=== PATIENT | male | born 1945 | race Caucasian/White ===

== ENCOUNTER 2018-01-09 07:30 | Inpatient (IN) | payer MEDICARE, BC ==
[2018-01-15] MEDS ORDERED: Buffered Lidocaine 0.9% SYRIN* 5 ML/SYR SYRINGE INTRADERM ONE (10:46)
[2018-01-16] MEDS ORDERED: Dexamethasone IV* 4 MG/ML 1 ML (4 MG) ONE (05:52)
[2018-01-16] MEDS ORDERED: Famotidine IV* 10 MG/ML 2 ML (20 mg) ONE (05:52)
[2018-01-16] MEDS ORDERED: ceFAZolin 2 GM PREMIX (*) 2 GM/50 ML BAG IVPB ONE (05:53)
[2018-01-16] MEDS ORDERED: Famotidine IV* 10 MG/ML 2 ML (20 mg) IV ONE (06:00)
[2018-01-16] MEDS ORDERED: Dexamethasone IV* 4 MG/ML 1 ML (4 MG) IV SLOW PU ONE (06:00)
[2018-01-16] MEDS ORDERED: fentaNYL* 50 MCG/ML 2 ML VIAL (100 MCG VIAL) ONE (07:04)
[2018-01-16] MEDS ORDERED: Gabapentin CAP(*) 300 MG PO ONE (07:05)
[2018-01-16] MEDS ORDERED: celeCOXIB CAP* 200 MG PO ONE (07:05)
[2018-01-16] MEDS ORDERED: Midazolam* 1 MG/ML 10 ML VIAL (10 MG) ONE (07:05)
[2018-01-16] MEDS ORDERED: Acetaminophen IV 1GM/100ML * 1,000 MG/100 ML VIAL IVPB ONE (07:06)
[2018-01-16] MEDS ORDERED: celeCOXIB CAP* 100 MG ONE (07:17)
[2018-01-16] MEDS ORDERED: Gabapentin CAP(*) 300 MG ONE (07:17)
[2018-01-16] MEDS ORDERED: Acetaminophen IV 1GM/100ML * 100 ML ONE (07:18)
[2018-01-16] MEDS ORDERED: Ropivacaine (OR use only) 2 MG/ML 10 ML ONE (07:23)
[2018-01-16] MEDS ORDERED: Ondansetron INJ* 2 MG/ML VIAL ONE (08:07)
[2018-01-16] MEDS ORDERED: Bupivacaine 0.5% SDV PF* 30ML VIAL ONE (08:08)
[2018-01-16] MEDS ORDERED: Lidocaine 2% PF * 5 ML VIAL ONE (08:08)
[2018-01-16] MEDS ORDERED: Ondansetron INJ* 2 MG/ML VIAL IV PRN ×2 (09:04→10:20)
[2018-01-16] MEDS ORDERED: HYDROmorphone INJ* 1 MG/ML CARPUJECT SYRINGE IV PRN (09:04)
[2018-01-16] MEDS ORDERED: fentaNYL* 50 MCG/ML 2 ML VIAL (100 MCG VIAL) IV PRN (09:04)
[2018-01-16] MEDS ORDERED: DiMENhydriNATE IV* 50 MG/ML VIAL IV PUSH PRN (09:04)
[2018-01-16] MEDS ORDERED: Naloxone* 0.4 MG/ML 1 ML VIAL IV PRN (09:04)
[2018-01-16] MEDS ORDERED: Propofol* 10 MG/ML 20 ML BTL IV PUSH ONE (10:02)
[2018-01-16] MEDS ORDERED: oxyCODONE TAB* 5 MG TAB PO PRN (10:20)
[2018-01-16] MEDS ORDERED: Morphine INJ* 2 MG/ML 1 ML CARPUJECT IV PRN (10:20)
[2018-01-16] MEDS ORDERED: oxyCODONE/Acetamin 5/325 MG* TAB PO PRN ×2 (10:20)
[2018-01-16] MEDS ORDERED: Polyethylene Glycol 3350* 17 GM PACKET PO PRN (10:20)
[2018-01-16] MEDS ORDERED: diPHENhydraMINE IV* 50 MG/ML 1 ml VIAL (BENADRYL) IV PRN (10:20)
[2018-01-16] MEDS ORDERED: diPHENhydraMINE PO* 25 MG PO PRN (10:20)
[2018-01-16] MEDS ORDERED: Cyclobenzaprine TAB* 10 MG PO PRN (10:20)
[2018-01-16] MEDS ORDERED: Bisacodyl SUPP* 10 MG SUPP PR PRN (10:20)
[2018-01-16] MEDS ORDERED: Ondansetron TAB* 4 MG PO PRN (10:20)
[2018-01-16] MEDS ORDERED: Temazepam CAP* 15 MG PO PRN (10:20)
--- NOTE | 2018-01-16 11:38 | RAD ---
HISTORY: Postop hip arthroplasty COMPARISONS: January 10, 2018 VIEWS: 1, single portable view of the lower pelvis FINDINGS: BONE DENSITY: Normal. BONES: The patient is status post right hip arthroplasty. On the single frontal projection, there is no appreciable hardware failure or osteolysis. JOINTS: The patient is status post right hip arthroplasty. There is moderate osteoarthritis of the left hip. ALIGNMENT: There is no dislocation. SOFT TISSUES: Unremarkable. OTHER FINDINGS: None. IMPRESSION: STATUS POST RIGHT HIP ARTHROPLASTY.
[2018-01-16] MEDS: ceFAZolin 1 GM in Dextrose (*) 1 GM/50 ML BAG IVPB SCH (16:11)
[2018-01-16] MEDS: Finasteride TAB* 5 MG PO SCH (17:53)
[2018-01-16] MEDS: Folic Acid TAB* 1 MG PO SCH (17:53)
[2018-01-16] MEDS: Ferrous Sulfate TAB* 325 MG PO SCH (21:08)
[2018-01-16] MEDS: Docusate CAP* 100 MG PO SCH (21:08)
[2018-01-16] MEDS: guaiFENesin ER TAB 600 MG PO SCH (21:08)
[2018-01-16] MEDS: Niacin ER TAB* 500 MG PO SCH (21:08)
[2018-01-17] MEDS: ceFAZolin 1 GM in Dextrose (*) 1 GM/50 ML BAG IVPB SCH ×2 (00:07→08:02)
--- NOTE | 2018-01-17 01:48 | OP ---
CC: Dr. Patrice Moss, [facility] * DATE OF OPERATION: 01/16/18 - ROOM #349 DATE OF : 41 SURGICAL CARE: Right hip. SURGEON: Heath Arrieta MD ASSISTANTS: 1. LANIE Claudio. She was the administrative assistant receptionist. 2. Zenobia Pina, surgical consultant. ANESTHESIOLOGIST: Dr. Ramses Delatorre. ANESTHESIA: Right iliac block in the holding area. Spinal anesthetic. IV sedation. PRE-OP DIAGNOSIS: Severe arthritis of the right hip. POST-OP DIAGNOSIS: Severe arthritis of the right hip. OPERATIVE PROCEDURE: Right total hip replacement. COMPONENTS UTILIZED: Stephany components were utilized, a continuum cup 52-mm outer diameter with one screw. An elevated liner high-density polyethylene with the elevation located posteriorly, and the liner was for a 36 head, one screw in the cup. On the femoral side, a standard M/L taper size 10 with a - 3.5 36-mm cobalt chrome head. COMPLICATIONS: There were no complications. DRAINS: There were no drains. BLOOD LOSS: 250 mL. REPLACEMENT: Crystalloid fluids. OPERATIVE INDICATIONS: Severe arthritis of the right hip. He has had this for several years. He has had cortisone injections. The hip is no longer responding to nonoperative care and a right total hip replacement was recommended. DESCRIPTION OF PROCEDURE: The patient was brought to the operating room and placed on the operating room table in a supine position. Following the administration of the spinal anesthetic done in the sitting position, the patient returned to the supine position and a Mejia catheter was inserted. The patient was placed in the left lateral position with a folded blanket under the left greater trochanter. The downside left leg had no pressure on the peroneal nerve at the fibular head and neck. Blankets were placed between the legs. The groin was sealed off and the pelvis was secured over the ASIS and the sacrum with a hip positioner. The right hip was given a preliminary chlorhexidine prep and then a formal ChloraPrep prep from the hip to the foot. After prepping, draping, and sealing off, we did our universal protocol time- out confirming Duc Flaccus and a plan for a right total hip replacement. We all agreed and we proceeded. The skin incision went from the greater trochanter distally for an inch and proximally and posteriorly for 2.5 inches. The skin and subcutaneous tissues were divided. The local anesthetic 0.25% Marcaine without epinephrine was used to bolster the anesthetic on the posterior and superior part to the incision. Careful hemostasis was checked and achieved throughout the case utilizing electrocautery. The fascia larry was opened in line with the skin incision. The Charnley retractor was inserted. Trochanteric bursectomy was completed. The posterior gluteus medius was retracted anteriorly with a blunt Hohmann retractor exposing the piriformis and the conjoint tendon. The piriformis and conjoint tendon were released from the piriformis fossa insertions. Each was marked with #2 Surgidac and the stitch also marked the under-lying both more posterior capsule. The hip had abundant gold clear synovial fluid. The gluteus medius was also retracted anteriorly. The superior capsule was opened partially and the hip was dislocated without any difficulty. The femoral head was completely eburnated on top and little flattened. On the acetabular side, there was a large medial osteophyte that completely sealed off the acetabular fossa. The femoral neck was cut proximally a fingerbreadth proximal to the lesser trochanter after checking with a neck cutting guide for the M/L taper. The remainder of the acetabular labrum was removed posteriorly, superiorly, and anteriorly. There was a lot of synovitis of the hip. Sharp retractors Hohmann type anteriorly and posteriorly, blunt retractor superiorly and inferiorly. The posterior inferior osteophyte was removed. The medial osteophyte was removed with osteotomes and the Charnley curette. Once the fossa was nicely visible, then reaming was done 46 through 52 and at 52, we had nice bleeding subchondral and cancellous bone. The acetabulum was cleaned with saline pulsed irrigation type, dried, and then the 52 cup was impacted into position in 45 degrees of abduction, 20 degrees of anteversion and we checked to see it had bottomed out. A screw was placed superiorly and an elevated liner was then placed posteriorly. Careful hemostasis was checked and achieved. The acetabulum was packed and on the femoral side, we used a canal finder, trochanteric reamer, and box osteotome broaching was done 5, 6, 7 through 10 and at 10, we had a nice tight fit. A trial reduction was done with a +0 on a standard neck stem and this I felt was a little too tight. The size 10 M/L tapered standard stem was impacted into position in 15 to 20 degrees of anteversion. A trial reduction was done with a +0 and this still felt too tight, so I utilized a -3.5 36 mm head. The trunnion was cleaned and the final head was applied. The hip was reduced without difficulty. Negative push/pull in extension. The hip went into extension by a few degrees with good soft tissue feel. Flexion of 90 degrees allowed adduction and internal rotation approaching 30 to 40 degrees prior to dislocation. The piriformis and conjoint tendon were reapproximated to the posterior superior greater trochanter through 2 drill holes. We checked and achieved hemostasis on the way out prior to reattaching the muscles and irrigated on the way out including swabbing the soft tissues with clean lap sponges. The fascial larry closed with interrupted #1 Polysorb in a [id number] fashion. Deep and superficial subcu was closed with 0 and then 2-0 Polysorb and then alyssa on the skin. A little more local anesthetic 10 mL was infiltrated into the more superior part to the incision and the incision was then closed with alyssa, washed and dried and covered with Betadine-soaked release, sterile gauze, ABD pad, and then paper tape. The patient was returned to the recovery room in stable and satisfactory condition, having tolerated the procedure very well. [id number]/CPS #: [id number] AMANDA
[2018-01-17 05:47] LABS: Hematocrit 34 % (42-52); Mean Platelet Volume 7.1 um3 (7.4-10.4); Platelet Count 174 10^3/ul (150-450)
[2018-01-17 06:03] LABS: EGFR Non-African American 91.8 (>60)
[2018-01-17] MEDS ORDERED: Magnesium Hydroxide LIQ* 30 ML UDC PO PRN (08:00)
--- NOTE | 2018-01-17 08:09 | PN ---
Progress Note - Progress Note Date of Service: 01/17/18 SOAP: Subjective: Minimal hip region pain left. [] 98.9 F, In 4500 ml, Out 4450 ml. Hct 34%, Sorry the previous is objective. Objective: Awake, alert, cooperative and breathing easily. Post op X-ray right hip all satisfactory. []Right Post Tibial pulse is 2 plus. Active right ankle movements up and down. Extends right knee easily. Assessment: Doing well right total hip replacement. Acute blood loss anemia. [] Plan: Up with walker weight bearing as tolerated right. []
[2018-01-17] MEDS: Vitamin THERAPEUTIC TAB PO SCH (09:23)
[2018-01-17] MEDS: Aspirin TAB* 325 MG PO SCH (09:23)
[2018-01-17] MEDS: guaiFENesin ER TAB 600 MG PO SCH ×2 (09:23→19:50)
[2018-01-17] MEDS: Docusate CAP* 100 MG PO SCH ×2 (09:23→19:49)
[2018-01-17] MEDS: Niacin ER TAB* 500 MG PO SCH ×2 (09:23→19:50)
[2018-01-17] MEDS: Ferrous Sulfate TAB* 325 MG PO SCH ×2 (09:23→19:49)
[2018-01-17] MEDS ORDERED: Enoxaparin(*) 40 MG/0.4 ML SYR SUBCUT SCH (12:00)
[2018-01-17] MEDS: Acetaminophen TAB* 325 MG PO PRN ×2 (12:55→19:50)
[2018-01-17] MEDS: Finasteride TAB* 5 MG PO SCH (17:41)
[2018-01-17] MEDS: Folic Acid TAB* 1 MG PO SCH (17:41)
[2018-01-18 06:17] LABS: Hematocrit 36 % (42-52); Mean Platelet Volume 7.4 um3 (7.4-10.4); Platelet Count 169 10^3/ul (150-450)
[2018-01-18] MEDS: Ferrous Sulfate TAB* 325 MG PO SCH (08:11)
[2018-01-18] MEDS: Acetaminophen TAB* 325 MG PO PRN ×2 (08:11→13:36)
[2018-01-18] MEDS: Aspirin TAB* 325 MG PO SCH (08:11)
[2018-01-18] MEDS: guaiFENesin ER TAB 600 MG PO SCH (08:12)
[2018-01-18] MEDS: Vitamin THERAPEUTIC TAB PO SCH (08:12)
[2018-01-18] MEDS: Docusate CAP* 100 MG PO SCH (08:12)
[2018-01-18] MEDS: Niacin ER TAB* 500 MG PO SCH (08:12)
--- NOTE | 2018-01-18 11:29 | PN ---
Progress Note - Progress Note Date of Service: 01/18/18 SOAP: Subjective: []Patient seen at bedside with his family present. He feels well, has no hip pain. Denies CP, SOB, dizziness, leg numbness, fever, nausea or chills. Objective: [] Vital Signs Temp 98.1 F 01/18/18 07:42 Pulse 69 01/18/18 07:42 Resp 18 01/18/18 08:00 BP 148/81 01/18/18 07:42 Pulse Ox 95 01/18/18 08:00 Intake & Output 01/17/18 01/18/18 01/18/18 18:59 06:59 18:59 Intake Total 3422 1010 870 Output Total 1999 1350 1000 Balance 1422 -340 -130 Intake: IV Fluids 987 LR 987 IVPB 115 LR 115 Oral 2320 1010 870 Output: Urine 1999 1350 1000 Other: Estimated Void Medium Medium # Bowel Movements 1 1 Estimated Stool Amount Large Large # Voids 5 1 Laboratory Last Values Hgb 12.0 g/dl (14.0-18.0) L 01/18/18 05:41 Hct 36 % (42-52) L 01/18/18 05:41 Plt Count 169 10^3/ul (150-450) 01/18/18 05:41 MPV 7.4 um3 (7.4-10.4) 01/18/18 05:41 Sodium 139 mmol/L (139-145) 01/17/18 05:27 Potassium 4.0 mmol/L (3.5-5.0) 01/17/18 05:27 Chloride 106 mmol/L (101-111) 01/17/18 05:27 Carbon Dioxide 27 mmol/L (22-32) 01/17/18 05:27 Anion Gap 6 mmol/L (2-11) 01/17/18 05:27 BUN 16 mg/dL (6-24) 01/17/18 05:27 Creatinine 0.82 mg/dL (0.67-1.17) 01/17/18 05:27 Est GFR ( Amer) 118.1 (>60) 01/17/18 05:27 Est GFR (Non-Af Amer) 91.8 (>60) 01/17/18 05:27 BUN/Creatinine Ratio 19.5 (8-20) 01/17/18 05:27 Glucose 115 mg/dL (70-100) H 01/17/18 05:27 Calcium 8.9 mg/dL (8.6-10.3) 01/17/18 05:27 General: Well appearing, NAD RLE: Right hip dressing changed. Incision with well approximated edges, no erythema and no discharge. DF/PF intact. DP/PT2+. Sensation intact to light touch distally. BL LE: Calves supple and nontender without erythema, edema or palpable cords. Assessment: []POD 2 sp right total hip arthroplasty Plan: []WBAT PT/OT Hip precautions ASA only for DVT/PE prophylaxis Discharge home today. Patient and family aware and agreeable
[2018-01-18 11:56] VITALS: BP 139/74
--- NOTE | 2018-01-19 14:28 | DS ---
DISCHARGE SUMMARY: DATE OF ADMISSION: 01/16/18 DATE OF DISCHARGE: 01/18/18 SURGEON: Heath Arrieta MD * (DICTATED BY LANIE DIEZ) ASSISTANTS: LANIE Claudio and Zenobia Pina. PRE-OP DIAGNOSIS: Severe arthritis of the right hip. OPERATIVE PROCEDURE: Right total hip replacement. HISTORY: Severe arthritis of the right hip for several years, failure of conservative treatment with cortisone injections, elected to undergo right total hip arthroplasty. HOSPITAL COURSE: The patient was admitted to [facility] on . He underwent a right total hip arthroplasty on this date without complication. He recovered briefly in the PACU and then was transferred to the short stay surgical unit in stable condition. Postop day#1, vitals: Temperature 98.9, pulse 78, respiratory rate 16, oxygen saturation 26, blood pressure 144/79. The patient is awake, alert, cooperative, breathing easily. Postop x-ray, right hip all satisfactory. Posterior tibial pulse on the right side is 2+, active ankle dorsiflexion, plantarflexion, and extends right knee easily. Postop day#2, the patient was seen at bedside. Hemoglobin 12.0, hematocrit 36. Temperature 98.1, pulse 69, respiratory rate 18, blood pressure 148/81, pulse ox 95%. The patient is well appearing, in no acute distress. Right hip dressing was changed. Incision with well-approximated edges. No erythema or discharge. Dorsiflexion and plantar-flexion intact. 2+ dorsalis pedis and posterior tibial pulses. Sensation intact to light touch is intact distally. The patient was deemed to be medically and orthopedically stable for discharge to home. Home medications were resumed. New medications at discharge: 1. Tylenol 650 mg p.o. q.4 hours p.r.n., max daily dose 5000 mg from all sources. 2. Aspirin 325 mg p.o. daily for 30 days. 3. Docusate 100 mg p.o. b.i.d. p.r.n. constipation. 4. Percocet 5/325, 1 to 2 tablets every 4 to 6 hours as needed for pain. Max daily dose of 10. 5. Aspirin 81 mg, will be held until the patient is done taking 325 mg dose of aspirin. Once 325 mg dose has been taken for 1 month, the patient will resume his normal 81 mg daily dose. DISCHARGE PLAN: Weightbearing as tolerated. Okay to shower. Do not submerge the wound. Continue hip precautions. Aspirin 325 mg daily for 30 days for DVT prophylaxis. Pain control with Percocet 5/325 one to two tabs every 4 to 6 hours as needed for pain, max daily dose of 10 tabs. Follow up with Dr. Arrieta within 4 to 6 weeks, sooner with any concerns. Call for an appointment. LANIE DIEZ [id number]/[facility] #: [id number] AMANDA
== END 2018-01-18 13:45 | disposition home health service (06) | DRG 470 ==
LOC: AA 01-16 05:55 → SSU 01-16 10:20
PROVIDERS: ADMIT Orthopaedic Surgery; ATTEND Orthopaedic Surgery
PROC: 0SR902Z Replacement of Right Hip Joint with Metal on Polyethylene Synthetic Substitute, Open Approach (ICD-10-PCS; principal; 2018-01-16 07:30)
DX: M16.11 Unilateral primary osteoarthritis, right hip (principal); D62 Acute posthemorrhagic anemia; N40.0 Benign prostatic hyperplasia without lower urinary tract symptoms; G47.33 Obstructive sleep apnea (adult) (pediatric); M25.751 Osteophyte, right hip; M50.30 Other cervical disc degeneration, unspecified cervical region; Z96.1 Presence of intraocular lens; M51.36 Other intervertebral disc degeneration, lumbar region; Z91.013 Allergy to seafood; Z98.49 Cataract extraction status, unspecified eye; Z91.018 Allergy to other foods; Z79.82 Long term (current) use of aspirin
CPT/HCPCS: 36415; 72170; 80048; 85014; 85018; 85049; 88304; 88311; A9270-GY; C1713; C1776; G8978-GP-CI; G8979-GP-CH; G8979-GP-CI; G8987-GO-CJ; G8987-GO-CK; G8988-GO-CI; J0690; J1100; J1650; J2250; J2405; J2704; J2795; J3010

== ENCOUNTER 2018-06-06 15:08 | Emergency (ER) | payer MEDICARE, BC ==
--- OUTSIDE RECORDS SUMMARY | 2018-06-06 15:16 | XMS REPORT ---
:1945 External Reference #:[id number] Author Organization [employer] Address [address] [place] [address] Phone [phone] Care Team Providers Name Role Phone Yrn Moss MD Primary Care Physician Unavailable Payers Type Date Identification Numbers Payment Provider Subscriber Medicare Primary Policy Number: [id number] Medicare Joie Bedollaus PayID: [id number] [address] [place] [address] Medigap Part B Effective: 2008 Policy Number: Medicare Joie Anaccus [id number] Expires: 2018 PayID: [id number] [address] [place] [address] Medigap Part B Effective: 2017 Policy Number: BS Facets Joie Anaccus [id number] PayID: [id number] [address] [address] [place] [id number] Medigap Part B Effective: 2014 Policy Number: Facets Joie Anaccus [id number] Expires: 2017 PayID: [id number] [address] [address] [place] [id number] Problems Date Description Provider Status Onset: 02/24/2017 Cough Romelia Barragan MD Active Onset: 07/12/2017 Localized, 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 Onset: 03/13/2018 Acquired hallux rigidus Conrad Hyatt MD Active Onset: 03/13/2018 Localized, primary osteoarthritis of the Conrad Hyatt MD Active ankle and/or foot Family History Date Family Member(s) Problem(s) Comments General Diabetes General Heart Disease General Cancer Father due to Heart Disease () Mother due to Lung Cancer () Social History Type Date Description Comments Marital Status Lives With ETOH Use Drinks 1 Alcoholic Beverage Per Week Smoking Patient has never smoked Daily Caffeine Consumes on average 4 cups of hot tea per day Exercise Type/Frequency Exercises regularly Allergies, Adverse Reactions, Alerts Date Description Reaction Status Severity Comments 01/10/2018 Shellfish-derived Products active 01/10/2018 Pepper Extract active 01/10/2018 [place] Pepper Extract active 07/10/2014 NKDA inactive Medications Medication Date Status Form Strength Qnty SIG Indications Ordering Provider Ascorbic Acid Active qd Unknown / Cyanocobalamin Active qd Unknown / Multi For Him Active qd Unknown /0000 L-Carnitine Active qd Unknown / Magnesium Active qd Unknown / Niacin Active qd Unknown / Selenicaps-200 Active qd Unknown / Vitamin D-3 Active qd Unknown /0000 Zinc Active qd Unknown /0000 Finasteride Active qd Unknown /0000 Folic Acid Active qd Unknown /0000 Aspir-81 Active Tablets 81mg 1 by mouth Unknown /0000 DR every day Garlic Oil Active Capsules 1000mg 1 by mouth Unknown /0000 daily. [place] 3 Active Capsules 1000mg 1 by mouth Unknown /0000 qd. Vitamin E Active Capsules 400Unit Unknown /0000 Turmeric Active Capsules 500mg take one Unknown /0000 capsule/table t daily by mouth Mucinex Active Tablets 600mg twice a day Unknown /0000 ER 12HR as needed Sildenafil Active Tablets 25mg Unknown Citrate / Atorvastatin Active Tablets 10mg Bradford, Calcium MD Yrn Colace 01/18 Hx Capsules 100mg 90cap 1 tab every Dirk s 12 hours as Berny, - needed for M.D. 03/12 constipation Oxycodone-Acetam 01/18 Hx Tablets 5-325mg 70tab 1-2 by mouth Dirk inophen s every 4-6 Berny, - hours as M.D. 03/12 needed for post-op pain. max 10 per day Hospital Bed 09/29 Hx use as needed M16.11 Dirk Ricardo Arrieta M.D. 03/12 Z47.1 Aspirin Ec Lo-Dose - Hx Unknown 02/23/2017 Chromium Picolinate - Hx Unknown Fortified 07/11/2017 Garlic - Hx Unknown 02/23/2017 Glucosamine & Fish - Hx Unknown Oil 02/23/2017 Grape Seed Complex - Hx Unknown 02/23/2017 [place]-3 CF - Hx Unknown 02/23/2017 Cialis - Hx Unknown 02/23/2017 Tumeric - Hx Unknown 06/11/2017 Ibuprofen - Hx Unknown 02/23/2017 Quaifenesin - Hx Unknown 02/23/2017 [place] - Hx Capsules 1 qd Unknown 06/11/2017 Viagra - Hx Tablets 1 by mouth Unknown 06/11/2017 every day as needed Glucosamine - Hx Capsules 500Comp 1 by mouth Unknown Chondroitin 500 07/11/2017 twice a day Complex Grape Seed - Hx Tablets 50mg Unknown 07/11/2017 Ibuprofen - Hx Capsules 200mg 3 tabs by Unknown 04/17/2018 mouth tid Vital Signs Date Vital Result Comment 05/25/2018 Height 72 inches 6'0" Weight 174.00 lb Heart Rate 78 /min BP Systolic 110 mmHg BP Diastolic 70 mmHg Respiratory Rate 12 /min Body Temperature 98.2 F Pain Level 0 BMI (Body Mass Index) 23.6 kg/m2 04/17/2018 Height 72 inches 6'0" Weight 174.00 lb BP Systolic Sitting 128 mmHg BP Diastolic Sitting 82 mmHg Respiratory Rate 16 /min Body Temperature 98.0 F Pain Level 4 BMI (Body Mass Index) 23.6 kg/m2 03/13/2018 Height 72 inches 6'0" Weight 174.00 lb Heart Rate 61 /min BP Systolic 147 mmHg BP Diastolic 91 mmHg Body Temperature 96.3 F BMI (Body Mass Index) 23.6 kg/m2 03/12/2018 Height 72 inches 6'0" Weight 174.00 lb Heart Rate 82 /min BP Systolic Sitting 144 mmHg BP Diastolic Sitting 84 mmHg Respiratory Rate 16 /min Pain Level 0 BMI (Body Mass Index) 23.6 kg/m2 02/05/2018 Height 72 inches 6'0" Weight 174.00 lb BP Systolic 144 mmHg BP Diastolic 80 mmHg Respiratory Rate 20 /min Body Temperature 97.2 F Pain Level 0 BMI (Body Mass Index) 23.6 kg/m2 01/10/2018 Height 72 inches 6'0" Weight 174.00 lb BP Systolic 124 mmHg BP Diastolic 78 mmHg Respiratory Rate 18 /min Body Temperature 97.9 F Pain Level 4 BMI (Body Mass Index) 23.6 kg/m2 07/12/2017 Heart Rate 62 /min BP Systolic Sitting 132 mmHg BP Diastolic Sitting 82 mmHg Body Temperature 96.4 F 06/12/2017 Height 72 inches 6'0" Weight 174.00 lb BP Systolic 124 mmHg BP Diastolic 72 mmHg Respiratory Rate 18 /min Body Temperature 97.2 F Pain Level 4 BMI (Body Mass Index) 23.6 kg/m2 02/24/2017 Height 72 inches 6'0" Weight 175.00 lb Heart Rate 75 /min BP Systolic Sitting 144 mmHg BP Diastolic Sitting 86 mmHg Respiratory Rate 16 /min O2 % BldC Oximetry 97 % BMI (Body Mass Index) 23.7 kg/m2 Neck Circumference in inches 15 08/19/2015 Height 72 inches 6'0" Weight 178.00 lb Heart Rate 66 /min BP Systolic 134 mmHg BP Diastolic 88 mmHg BMI (Body Mass Index) 24.1 kg/m2 07/14/2014 Height 72 inches 6'0" Weight 177.00 lb Heart Rate 63 /min BP Systolic 137 mmHg BP Diastolic 88 mmHg BMI (Body Mass Index) 24.0 kg/m2 Results Test Date Test Result H/L Range Note Urinalysis Profile 01/10/2018 Urine Color Yellow 1 Urine Appearance Clear 1 Urine Specific [place] 1.012 1.010-1.030 1 Urine pH 5.0 5-9 1 Urine Urobilinogen Negative Negative 1 Urine Ketones Negative Negative 1 Urine Protein Negative Negative 1 Urine Leukocytes Negative Negative 1 Urine Blood Negative Negative 1 * * Negative 1, 2 Urine Nitrite Negative Negative 1 Urine Bilirubin Negative Negative 1 Urine Glucose Negative Negative 1 Inr/Protime 01/10/2018 Inr 0.93 0.77-1.02 1 Laboratory test finding 01/10/2018 Partial Thrombo Time 27.5 seconds 26.0 -36.3 1, 3 PTT CBC No Diff 01/10/2018 White Blood Count 6.8 10^3/uL 3.5-10.8 1 Red Blood Count 4.86 10^6/uL 4.0-5.4 1 Hemoglobin 15.0 g/dL 14.0-18.0 1 Hematocrit 45 % 42-52 1 Mean Corpuscular Volume 93 fL 80-94 1 Mean Corpuscular Hemoglobin 31 pg 27-31 1 Mean Corpuscular HGB Conc 33 g/dL 31-36 1 Red Cell Distribution Width 13 % 10.5-15 1 Platelet Count 212 10^3/uL 150-450 1 Mean Platelet Volume 7.4 um3 7.4-10.4 1 Comp Metabolic Panel 01/10/2018 Sodium 137 mmol/L 133-145 1 Potassium 4.7 mmol/L 3.5-5.0 1 Chloride 103 mmol/L 101-111 1 Co2 Carbon Dioxide 32 mmol/L 22-32 1 Anion Gap 2 mmol/L 2-11 1 Glucose 95 mg/dL 70-100 1 Blood Urea Nitrogen 25 mg/dL High 6-24 1 Creatinine 0.98 mg/dL 0.67-1.17 1 BUN/Creatinine Ratio 25.5 High 8-20 1 Calcium 10.1 mg/dL 8.6-10.3 1 Total Protein 6.1 g/dL Low 6.4-8.9 1 Albumin 3.9 g/dL 3.2-5.2 1 Globulin 2.2 g/dL 2-4 1 Albumin/Globulin Ratio 1.8 1-3 1 Total Bilirubin 0.60 mg/dL 0.2-1.0 1 Alkaline Phosphatase 67 U/L 34-104 1 Alt 17 U/L 7-52 1 Ast 16 U/L 13-39 1 Egfr Non- 74.8 >60 1 Egfr 96.2 >60 1, 4 Type & Screen 01/10/2018 Patient Blood Type O Positive 1 Antibody Screen NEGATIVE 1 Urine Culture And Sensitivities 01/10/2018 Urine Culture SEE RESULT BELOW 1, 5 1 AA 01/16 2 *Ascorbic acid is present which may interfere with detection of blood. 3 AA 01/16 4 Because ethnic data is not always readily available, this report includes an eGFR for both -Americans and non- Americans. The National Kidney Disease Education Program (NKDEP) does not endorse the use of the MDRD equation for patients that are not between the ages of 18 and 70, are , have extremes of body size, muscle mass, or nutritional status, or are non- or non-. According to the National Kidney Foundation, irrespective of diagnosis, the stage of the disease is based on the level of kidney function: Stage Description GFR(mL/min/1.73 m(2)) 1 Kidney damage with normal or decreased GFR 90 2 Kidney damage with mild decrease in GFR 60-89 3 Moderate decrease in GFR 30-59 4 Severe decrease in GFR 15-29 5 Kidney failure <15 (or dialysis) 5 SEE RESULT BELOW Name: JOIE CARR : [address]: Heath Arrieta MD Acct: [id number] Unit: [id number] AGE: 72 Location: [facility] Re01/10/18 SEX: M Status: REG REF SPEC: [id number] MENDY: 01/10/18-1156 [facility] DR: Heath Arrieta MD REQ: [id number] RECD: 01/10/18-1220 STATUS: ISADORA SCHAFFER DR: Yrn Moss MD _ SOURCE: URINE SPDESC: ORDERED: Urine Culture COMMENTS: EDWIN 01/16 QUERIES: Urine Source: Clean Catch Procedure Result Reported Site Urine Culture Final 01/11/18- 1514 ML No Growth (<1,000 CFU/mL) * ML - Main Lab . END OF REPORT DEPARTMENT OF PATHOLOGY, [address] [place] [address] Uziel Schafer M.D. Director [facility] # [id number] Procedures Date CPT Code Description Status 01/16/2018 28832 THR Total Hip Replacement Completed 01/16/201881827 THR Total Hip Replacement Completed 07/14/2014 36296 Rad Exam; Hip Unilat Completed 07/14/2014 01428 Rad Exam; Pelvis Completed Encounters Type Date Location Provider CPT E/M Dx Office Visit 04/17/2018 10:30a [facility] [place] [address] M20.22 C.M.A. M19.072 Office Visit 03/13/2018 9:45a [facility] [place] [address] M20.22 C.M.A. M19.072 Office Visit 03/12/2018 8:45a [facility] Heath Arrieta M.D. 24229 Z47.1 [place] M16.11 M79.672 Office Visit 07/12/2017 9:30a [facility] Arrieta M.D. 63973 M16.11 CDuMAbby Office Visit 06/12/2017 9:00a [facility] M.D. 34964 M16.11 [place] Office Visit 02/24/2017 1:45p [facility] [place] [address] R05 [facility] R91.8 J30.9 R06.83 Office Visit 08/19/2015 8:00a [facility] 42391 M19.142 Of [facility] Viveros M.D. M19.141 Office Visit 07/14/2014 2:15p [facility] Heath Arrieta M.D. 78198 715.15 [place] Plan of Care Future Appointment(s):06/20/2018 2:45 pm - Conrad Hyatt MD at [facility]06/07/2018 8:30 am - Conrad Hyatt MD at [facility]
[2018-06-06 15:25] VITALS: BP 130/85
[2018-06-06] MEDS ORDERED: DOXYcycline CAP(*) 100 MG PO ONE (15:57)
--- NOTE | 2018-06-06 15:59 | UC ---
Skin Complaint HPI - HPI Summary HPI Summary: patient believes he has a tick in his left forearm. He noticed a small swollen area after gardening today--- - History of Current Complaint Chief Complaint: UCSkin Time Seen by Provider: 06/06/18 15:35 Stated Complaint: BUG BITE ON ARM Hx Obtained From: Patient Onset/Duration: Sudden Onset Pain Intensity: 0 Pain Scale Used: 0-10 Numeric Location: Discrete - left forearm Character: Redness, Raised Aggravating Factor(s): Nothing Alleviating Factor(s): Nothing Associated Signs & Symptoms: Positive: Negative Related History: Insect Bite/Sting - Allergy/Home Medications Allergies/Adverse Reactions: Allergies Allergy/AdvReac Type Severity Reaction Status Date / Time shellfish derived Allergy Severe Anaphylatic Verified 06/06/18 15:25 Shock Review of Systems Constitutional: Negative Skin: Other - insect bite--patient is fearfull it is a tick bite Eyes: Negative ENT: Negative Respiratory: Negative Cardiovascular: Negative Gastrointestinal: Negative Genitourinary: Negative Motor: Negative Neurovascular: Negative Musculoskeletal: Negative Neurological: Negative Psychological: Negative Is Patient Immunocompromised?: No All Other Systems Reviewed And Are Negative: Yes PMH/Surg Hx/FS Hx/Imm Hx Previously Healthy: No Endocrine History: Dyslipidemia - Surgical History Surgical History: Yes Surgery Procedure, Year, and Place: hydrocele repair - 1957 [place]. right bicep repair 2004 [facility] [place]. umbilical and bilateral inguinal hernias repaired at same time 2016 - [place]. 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 - Family History Known Family History: Positive: None - Social History Occupation: Retired Lives: With Family Alcohol Use: Rare Substance Use Type: None Smoking Status (MU): Never Smoked Tobacco - Immunization History Most Recent Influenza Vaccination: fall 2016 Most Recent Pneumonia Vaccination: 2014 Physical Exam Triage Information Reviewed: Yes Appearance: Well-Appearing, No Pain Distress, Well-Nourished Vital Signs: Initial Vital Signs Temp 97.2 F 06/06/18 15:21 Pulse 58 06/06/18 15:21 Resp 20 06/06/18 15:21 BP 130/85 06/06/18 15:21 Pulse Ox 98 06/06/18 15:21 Vital Signs Reviewed: Yes Eye Exam: Normal Eyes: Positive: Conjunctiva Clear ENT Exam: Normal ENT: Positive: Normal ENT inspection, Hearing grossly normal, Trismus, Muffled voice, Hoarse voice Dental Exam: Normal Neck exam: Normal Neck: Positive: Supple, Nontender Respiratory Exam: Normal Respiratory: Positive: Chest non-tender, No respiratory distress, No accessory muscle use Cardiovascular Exam: Normal Cardiovascular: Positive: RRR, Pulses Normal, Brisk Capillary Refill Musculoskeletal Exam: Normal Musculoskeletal: Positive: Strength Intact, ROM Intact, No Edema Neurological Exam: Normal Neurological: Positive: Alert, Muscle Tone Normal Psychological Exam: Normal Skin Exam: Normal Skin: Positive: Other - small red area with brwn center and ring of bruising noted by patient this morning---is very concerned he had a tick bite Course/Dx - Course Course Of Treatment: bandaid on bite, Doxy 200mg times one follow with pcp - Diagnoses Provider Diagnoses: Lype PEP, Inscet (tick) exposure Discharge - Sign-Out/Discharge Documenting (check all that apply): Patient Departure - Discharge Plan Condition: Stable Disposition: AGAINST MEDICAL ADVICE Patient Education Materials: Insect Bite or Sting (ED), Tick Bite (ED) Referrals: Yrn Moss MD [Primary Care Provider] - If Needed - Billing Disposition and Condition Condition: STABLE Disposition: Against Medical Advice
== END 2018-06-06 16:04 | disposition left against medical advice (07) ==
LOC: UCEAST 15:08
DX: S50.862A Insect bite (nonvenomous) of left forearm, initial encounter (principal); W57.XXXA Bitten or stung by nonvenomous insect and other nonvenomous arthropods, initial encounter; Y93.H2 Activity, gardening and landscaping; Y92.096 Garden or yard of other non-institutional residence as the place of occurrence of the external cause; Z91.013 Allergy to seafood
CPT/HCPCS: 99212; A9270-GY; G0463

== ENCOUNTER 2018-06-07 06:59 | Day surgery (SDC) | payer MEDICARE, BC ==
[~2018-06-07 06:59] MED LIST: Buffered Lidocaine 0.9% SYRIN* 5 ML/SYR SYRINGE INTRADERM ONE; Famotidine IV* 10 MG/ML 2 ML (20 mg) IV ONE
[2018-06-07] MEDS ORDERED: ceFAZolin 2 GM PREMIX (*) 2 GM/50 ML BAG IVPB ONE (07:07)
[2018-06-07] MEDS ORDERED: Famotidine IV* 10 MG/ML 2 ML (20 mg) ONE (07:07)
[2018-06-07] MEDS ORDERED: Ondansetron INJ* 2 MG/ML VIAL ONE (08:00)
[2018-06-07] MEDS ORDERED: Midazolam* 1 MG/ML 5 ML VIAL (5 MG) ONE (08:00)
[2018-06-07] MEDS ORDERED: KETAMINE HCL* 50 MG/ML 10 ML VIAL ONE (08:00)
[2018-06-07] MEDS ORDERED: Propofol* 10 MG/ML 20 ML BTL IV PUSH ONE ×3 (08:00→10:16)
[2018-06-07] MEDS ORDERED: Dexamethasone IV* 4 MG/ML 1 ML (4 MG) ONE (08:00)
[2018-06-07] MEDS ORDERED: Ketorolac INJ* 30 MG/ML 1 ML VIAL ONE (08:00)
[2018-06-07] MEDS ORDERED: Lidocaine 2% PF * 5 ML VIAL ONE (08:00)
[2018-06-07] MEDS ORDERED: fentaNYL* 50 MCG/ML 2 ML VIAL (100 MCG VIAL) ONE (08:00)
[2018-06-07] MEDS ORDERED: Ropivacaine (OR use only) 2 MG/ML 10 ML ONE (08:47)
[2018-06-07] MEDS ORDERED: ROPIVACAINE 5 MG/ML 30 ML BTL (0.5%) ONE (09:09)
[2018-06-07] MEDS ORDERED: fentaNYL* 50 MCG/ML 2 ML VIAL (100 MCG VIAL) IV PRN (09:49)
[2018-06-07] MEDS ORDERED: Naloxone* 0.4 MG/ML 1 ML VIAL IV PRN (09:49)
[2018-06-07] MEDS ORDERED: oxyCODONE/Acetamin 5/325 MG* TAB PO PRN (09:49)
[2018-06-07] MEDS ORDERED: Ondansetron INJ* 2 MG/ML VIAL IV PRN (09:49)
--- NOTE | 2018-06-07 11:00 | OP ---
Operative Report - Blank - Operative Report Date of Operation: 06/07/18 Note: PATIENT: Duc Carr DATE OF : 1945 DATE OF SURGERY: 06/07/2018 SURGEON: Conrad Hyatt MD ACCOUNTING INSTRUCTOR: LANIE Zelaya, whos assistance was necessary for positioning, retraction, help with instrumentation, and closure. ANESTHESIOLOGIST: Dr. De La Fuente PREOPERATIVE DIAGNOSIS: Left foot hallux rigidus POSTOPERATIVE DIAGNOSIS: Left foot hallux rigidus OPERATION: Left foot first metatarsophalangeal joint arthrodesis ANESTHESIA: MAC IMPLANTS: Two Arthrex 4.0mm cannulated screws TOURNIQUET TIME: 65 minutes with a well-padded calf tourniquet at 225mmHg SPECIMENS: None ESTIMATED BLOOD LOSS: Minimal COMPLICATIONS: none STATUS: Stable from the operating room to the recovery room and then home. INDICATIONS FOR PROCEDURE: Duc has had persistent pain at his left 1st MTP joint. Both operative and non -operative treatment alternatives were reviewed. Further, the nature and risks of surgery were reviewed in careful detail, in the office as well as the pre- operative holding area. Our discussions regarding the risks of surgery included , but were not limited to, infection, wound problems, nerve injury, neuroma, RSD , persistent symptoms, blood clot, nonunion, malunion, fracture, need for further surgery, failure of the surgery, and even the remote chance of catastrophic complication, including loss of limb. DESCRIPTION OF PROCEDURE: The patient was seen in the preoperative holding unit and informed written consent was obtained. The appropriate extremity was marked. The patient was then brought to the operating room and carefully positioned on the operating room table. Anesthesia was induced. All bony prominences were padded with great care. A chlorhexidine based pre-scrub was performed followed by a chloraprep prep and drape in standard sterile fashion. A surgical safety pause was then conducted in which we confirmed the appropriate patient, extremity, planned procedure, availability of equipment, indication and administration of prophylactic antibiotics, and DVT prophylaxis in the form of a compression boot on the non-surgical extremity. I began by placing a sterile calf tourniquet and then performed an Esmarch exsanguination of the limb and inflated the tourniquet. I then made an incision dorsally overlying the first MTP joint. I carried the dissection down through the soft tissue and mobilized the EHL tendon laterally. I then came sharply down to the level of the first MTP joint. I released around the medial aspects and lateral aspects of the joint to expose the metatarsal head and the base of the proximal phalanx. We had excellent visualization. There were arthritic changes present, especially at the plantar aspect of the joint. I prepared the joint for arthrodesis utilizing a combination of curettes and a 2-mm drill. There was healthy cancellous bone on both sides of the joint. This joint nicely reapproximated once we gained proper alignment. At this point, we used a flat plate to ensure that the hallux was not plantar flexed. I then placed the hardware, consisting of two 4.0 mm cannulated screws, which held the toe well aligned. These had phenomenal bites. This was rigid fixation with well opposed bone and healthy cancellous surfaces on both sides of the fusion site. Fluoroscopy was utilized to confirm the reduction and position of the hardware. The wounds were copiously irrigated and meticulously closed in layers utilizing 3-0 Monocryl and 3-0 nylon. A sterile dressing was then applied. The patient was then awakened from anesthesia and transferred to the recovery room in stable condition. There were no complications. All needle and sponge counts were correct at the end of the case. ATTESTATION: I attest I was present and scrubbed and performed the critical portions of the procedure myself. POSTOPERATIVE PLAN: The patient will remain heel weightbearing for anticipated duration of 6 weeks. Followup will be in 2 weeks for likely suture removal and Steri-Strip application.
[2018-06-07 11:06] VITALS: BP 116/93
--- NOTE | 2018-06-08 08:45 | RAD ---
INDICATION: M 79.672 COMPARISONS: March 12, 2018 TECHNIQUE: Fluoroscopy was provided for a surgical procedure. Total fluoroscopy time is: 36.2 seconds FINDINGS: Spot images demonstrate fixation across the first MTP joint. IMPRESSION: FLUOROSCOPY WAS PROVIDED FOR A SURGICAL PROCEDURE CPT II Codes: G9500
== END 2018-06-07 11:36 | disposition home or self-care (01) ==
LOC: OR 06:59
PROVIDERS: ATTEND Orthopaedic Surgery
DX: M20.22 Hallux rigidus, left foot (principal); M19.072 Primary osteoarthritis, left ankle and foot
CPT/HCPCS: 76000; C1713; J0690; J1100; J1642; J1885; J2250; J2405; J2704; J2795; J3010